=== PATIENT | female | born 1975 | race Caucasian/White ===

== ENCOUNTER → 2020-08-09 15:22 | Outpatient (CLI) | payer OTHER, SELFPAY ==
--- NOTE | ~2020-08-09 | MM_ITS ---
EXAMINATION: MM screening yani BI w royal HISTORY: Screening mammogram TECHNIQUE: Craniocaudal and mediolateral oblique 3-D tomosynthesis images were obtained and synthetic 2-D images were generated. CAD analysis was submitted and interpreted. COMPARISON: No prior mammogram is available for comparison at this institution. BREAST PARENCHYMAL COMPOSITION: There are scattered areas of fibroglandular density. FINDINGS: There is no evidence of suspicious mass, calcification, or architectural distortion to sugg est malignancy in either breast. There has been no suspicious interval change. IMPRESSION: 1. No mammographic evidence of malignancy. 2. Recommend routine screening mammography in one year. BI-RADS Category 1: Negative Reviewed, dictated and finalized at location A.
== END ==
PROVIDERS: Visit Provider Nurse Practitioner Obstetrics & Gynecology
DX: Z12.31 Encounter for screening mammogram for malignant neoplasm of breast (principal)
CPT/HCPCS: 77063; 77067

== ENCOUNTER → 2021-12-04 16:09 | Outpatient (CLI) | payer OTHER, SELFPAY ==
--- NOTE | ~2021-12-04 | MM_ITS ---
EXAMINATION: MM screening yani BI w royal HISTORY: Screening TECHNIQUE: Craniocaudal and mediolateral oblique 3-D tomosynthesis images were obtained and synthetic 2-D images were generated. CAD analysis was submitted and interpreted. COMPARISON: 08/09/2020 BREAST PARENCHYMAL COMPOSITION: There are scattered areas of fibroglandular density. FINDINGS: There is no evidence of suspicious mass, calcification, or architectural distortion to sugg est malignancy in either breast. There has been no suspicious interval change. IMPRESSION: 1. No mammographic evidence of malignancy. 2. Recommend routine screening mammography in one year. BI-RADS Category 1: Negative Reviewed, dictated and finalized at location A.
== END ==
PROVIDERS: PCP Internal Medicine; Visit Provider Internal Medicine
DX: Z12.31 Encounter for screening mammogram for malignant neoplasm of breast (principal)
CPT/HCPCS: 77063; 77067

== ENCOUNTER 2022-01-02 10:15 | Outpatient (CLI) | payer OTHER, SELFPAY ==
--- NOTE | ~2022-01-02 | MR_ITS ---
EXAMINATION: MR lumbar spine wo con DATE: 01/02/2022 10:51 INDICATION: Recurrent right-sided sciatica. Lumbar radiculopathy. TECHNIQUE: Magnetic resonance imaging (MRI) of the lumbar spine was performed without intravenous con trast. Sequences included sagittal T2-weighted FSE, sagittal T2-weighted FS FSE, sagittal T1-weighted FSE, and axial T2-weighted FSE. COMPARISON: None FINDINGS: There is 6 degrees levocurvature of thoracolumbar spine. Vertebral body heights are normal. Intervertebral disc heights are normal. The distal spinal cord signal intensity is normal. The conus medullaris is at T12-L1. There is a 4.8 cm cyst in left ovary, likely a follicular cyst. The followi ng disc levels are specifically discussed: L1-L2: The disc does not extend beyond the endplate margin. There is no facet joint osteoarthritis. T here is no neural foraminal stenosis. There is no central canal stenosis. L2-L3: There is a left foraminal protrusion. There is no facet joint osteoarthritis. There is mild le ft neural foraminal stenosis. There is no central canal stenosis. L3-L4: The disc is mildly bulging. There is mild bilateral facet joint osteoarthritis. There is mild right and moderate left neural foraminal stenosis. There is no central canal stenosis. L4-L5: There is a left central extrusion with mass effect on left L5 nerve root in left lateral reces s. There is mild left facet joint osteoarthritis. There is mild right and moderate left neural forami nal stenosis. There is mild central canal stenosis. There is moderate stenosis of left lateral recess . L5-S1: The disc does not extend beyond the endplate margin. There is mild bilateral facet joint osteo arthritis. There is no neural foraminal stenosis. There is no central canal stenosis. IMPRESSION: 1. Moderate lumbar spondylosis. Reviewed, dictated and finalized at location A.
== END 2022-01-02 10:16 | disposition home or self-care (01) ==
PROVIDERS: PCP Internal Medicine; Visit Provider Physician Assistant
DX: M54.31 Sciatica, right side (principal); M47.816 Spondylosis without myelopathy or radiculopathy, lumbar region
CPT/HCPCS: 72148

== ENCOUNTER 2022-03-31 16:42 | Outpatient (CLI) | payer OTHER, SELFPAY ==
[2022-03-31 19:55] LABS: Strep Group A RT-PCR Negative (Negative)
== END 2022-03-31 16:43 | disposition home or self-care (01) ==
LOC: ANHLAB 16:44
PROVIDERS: PCP Physician Assistant; Visit Provider Physician Assistant
DX: J02.9 Acute pharyngitis, unspecified (principal)
CPT/HCPCS: 87651

== ENCOUNTER → 2023-02-20 08:08 | Outpatient (CLI) | payer OTHER, SELFPAY ==
--- NOTE | ~2023-02-20 | MM_ITS ---
EXAMINATION: MM screening yani BI w royal HISTORY: Screening mammogram TECHNIQUE: Craniocaudal and mediolateral oblique 3-D tomosynthesis images were obtained and synthetic 2-D images were generated. CAD analysis was submitted and interpreted. COMPARISON: 12/04/2021, 08/09/2020 BREAST PARENCHYMAL COMPOSITION:There are scattered areas of fibroglandular density. FINDINGS: No suspicious mass, calcification, or architectural distortion are identified in either jenni ast to suggest malignancy. There has been no suspicious interval change. IMPRESSION: No mammographic evidence of malignancy. Recommend routine screening mammography in one year. BI-RADS Category 1: Negative Reviewed, dictated and finalized at location .
== END ==
PROVIDERS: PCP Internal Medicine; Visit Provider Internal Medicine
DX: Z12.31 Encounter for screening mammogram for malignant neoplasm of breast (principal)
CPT/HCPCS: 77063; 77067

== ENCOUNTER → 2023-07-02 10:06 | Outpatient (CLI) | payer OTHER, SELFPAY ==
--- NOTE | ~2023-07-02 | US_ITS ---
Pelvic ultrasound. Clinical History: Irregular menses Technique: Realtime transabdominal and transvaginal scanning of the pelvis was performed. Color flow Doppler and Doppler spectral analysis were performed. Findings: The uterus is anteverted. The endometrial stripe has a thickness of 9 mm. No focal mass is identified. The right ovary measures 3.9 x 1.9 x 2.9 cm. No significant right ovarian or adnexal mass is seen. The left ovary measures 2.9 x 1.5 x 3.4 cm. No significant left ovarian or adnexal mass is seen. There is no evidence of free fluid in the cul de sac. Impression: No significant abnormality seen. Reviewed, dictated and finalized at location . [employer] Impression: No significant abnormality seen.
== END ==
PROVIDERS: PCP Obstetrics & Gynecology; Visit Provider Obstetrics & Gynecology
DX: N92.6 Irregular menstruation, unspecified (principal)
CPT/HCPCS: 76830; 76856

== ENCOUNTER 2023-10-27 16:34 | Outpatient (CLI) | payer OTHER, SELFPAY ==
[2023-10-27 17:02] LABS: Hematocrit 36.7 % (37.0-47.0); Hemoglobin 11.6 g/dL (12.0-15.0)
== END 2023-10-27 16:35 | disposition home or self-care (01) ==
LOC: ANHLAB 16:35
PROVIDERS: Visit Provider Anesthesiology
DX: N93.9 Abnormal uterine and vaginal bleeding, unspecified (principal)
CPT/HCPCS: 36415; 85014; 85018

== ENCOUNTER 2023-11-03 02:43 | Day surgery (SDC) | payer OTHER, SELFPAY ==
[2023-10-27 10:06] VITALS: BMI 31.2
--- NOTE | 2023-10-27 10:06 | PC.NURSE ---
Report to the Outpatient Waiting Room, entrance under the green pavilion located off [facility], at time _0800_ on date _[id number]_. Planned Procedure Time: _1000_. Time changes happen often and if your time is changed the preop area will call you the afternoon before. - You and your visitor will be asked to self-screen and do not enter if you have any COVID symptoms. - A mask is optional within the hospital at this time. Patients may have clear liquids (water, carbonated beverages, clear teas, apple juice) until 3 hours prior to surgery with a maximum of 20 ounces. - No food from midnight until time of surgery Take the following medications with a SIP of water the morning of surgery: __None DO NOT STOP ANY OF YOUR OTHER PRESCRIPTION MEDICATIONS PRIOR TO SURGERY ?EXCEPT THE FOLLOWING Medications to discontinue per physician Iron tab Date to take last ygov___[id number] Please no make-up, nail guatemalan, hairspray, perfume, deodorant, or body powder the day of surgery. No jewelry (including any body piercings) or valuables the day of surgery, leave them at home. Please take a shower or bath the night before, or the morning of, surgery with an antibacterial soap. Wear comfortable, loose fitting clothing. - Jewelry must be removed prior to entering the operating room. Rings and piercings that are not removed may be cut off. - The hospital will not accept responsibility for valuables. - Please leave all valuables, including medications, at home the day of surgery. If you are going home after surgery, a licensed diesel pile driver operator must drive you home. - NO public transportation without another adult if you receive anesthesia. - We recommend that an adult stay with you for 24 hours following discharge. - We also recommend that you do not drive, make important decision, drink alcoholic beverages, or take any drugs that were not prescribed by your health care provider for at least 24 hours after your discharge time. Follow any additional instructions given to you from your surgeon. If you or anyone in your household have experienced Covid symptoms in the past week, please notify your surgeon or the nurse liaison at the phone number below for possible testing. Telephone instructions given to _Franciscomik__and asked if any additional questions and then verbalized understanding. Patient advised to call surgeon office or pre surgery nurse liaison [phone] if any additional questions.
[2023-11-03] VITALS (7 sets, daily range): BP systolic 93–141; BP diastolic 47–90; PULSE 53–66; RESP 14–16; TEMP 36.2; O2SAT 95–100
[2023-11-03] MEDS: ACETAMINOPHEN 500 MG TABLET 1000 MG PO (08:10)
[2023-11-03] MEDS: LACTATED RINGERS 1,000 ML 30 ML IV CONT ×2 (08:18→10:48)
--- NOTE | 2023-11-03 09:44 | WPDANESEPPF ---
Anes - Initial Pre Proc Eval Procedure: Operation Date: 11/03/23 10:00 Proposed Procedures p Hysteroscopy, Dilation and Curettage with Removal of Any Endometrial Lesions if Necessary - Get Persaud MD Date/Time: 11/03/23 09:44 Surgeon: Get Persaud MD Pre Op Diagnosis: Abnormal Uterine Bleeding Patient Data Age: 48 Gender: F Height: 1.55 m Weight: 85.3 kg Last Vital Signs Temp 36.2 C L 11/03/23 08:24 Pulse 66 11/03/23 08:24 Resp 16 11/03/23 08:24 BP 141/90 H 11/03/23 08:24 Pulse Ox 100 11/03/23 08:24 O2 Del Method Room Air 11/03/23 08:24 Allergies Allergy/AdvReac Type Severity Reaction Status Date / Time No Known Allergies Allergy Verified 11/03/23 08:00 Home Medications Medication Instructions Recorded Confirmed Type levothyroxine 112 mcg tablet 112 mcg PO DAILY #90 tabs 11/09/22 11/03/23 Rx cyclobenzaprine 10 mg tablet See Rx Instructions .Route 09/08/23 11/03/23 Rx .COMPLEX #30 tabs ferrous sulfate 324 mg (65 mg 324 mg PO DAILY 10/27/23 11/03/23 History iron) tablet,delayed release loratadine 10 mg tablet (Claritin) 10 mg PO DAILY 10/27/23 11/03/23 History Patient hx anesthesia problems: none Family hx anesthesia problems: none Results Review: All pre-operative results and documents have been reviewed as part of the pre-operative evaluation. [facility] Past Medical History Medical History Back Pain delivery delivered Headache Thyroid disease Surgical History Surgical History H/O tubal ligation History of 3 sections Family History Family History Father Acute myocardial infarction, Onset Age: 44 Mother Acute myocardial infarction, Onset Age: 68 Other Asthma Diabetes mellitus Hypertension Social History Social History Smoking status: Never smoker Second hand tobacco smoke exposure: No Alcohol intake: current Substance use: never Substance use type: does not use Lack of Transportation: No Lack of Food: Never True Current Housing: I Have Housing Concerned About Future Housing: No Difficulty Paying Gas/Electric Bills: No Difficulty Paying for Meds: No Currently Unemployed: No Education: High School Diploma/GED Difficulty w/ Childcare or Family Care: No Living arrangements: with family Spiritual care concerns: No Anes - Eval Final PreProcedure Day of Procedure 11/03/23 09:44 Patient weight: obese Heart: regular rate and rhythm Lungs: clear to auscultation Airway: Mallampati scale class II Neurological: alert and oriented Last oral intake: >/= 8 hours ASA classification: II Emergent: no Anesthetic plan: proceed Anesthesia type and monitoring: general GIVS and standard monitoring Results Review: All pre-operative results and documents have been reviewed as part of the pre-operative evaluation. Informed Consent: The patient's anesthetic plan and its attendant risks and benefits were discussed with the patient/family/POA. Questions were solicited and answers provided to the satisfaction of the patient/family/POA.
--- NOTE | 2023-11-03 10:06 | PM.IMHP ---
H&P: HPI History of Present Illness Date/Time: 11/03/23 10:06 Chief Complaint: Abnormal bleeding Narrative: Patient with long history of abnormal uterine bleeding. Pelvic ultrasound normal. She has been recommended for endometrial sampling and was unable to perform endometrial biopsy in office. She was recommended for dilation and curettage and hysteroscopy. Review of Systems Review of Systems: All systems reviewed & are unremarkable except as noted in HPI and below Cardiovascular: Cardiovascular: Reports no additional cardiovascular complaints, Denies chest pain and Denies dyspnea Respiratory: Respiratory: Reports no additional respiratory complaints and Denies dyspnea Gastrointestinal: Gastrointestinal: Reports abdominal pain, Denies change in bowel habits, Denies diarrhea, Denies nausea and Denies vomiting Genitourinary: Genitourinary: Reports pelvic pain Musculoskeletal: Musculoskeletal: Reports back pain Integumentary/Breasts: Skin/Breast: Reports system reviewed and no additional complaints, except as docu Neurologic: Reports system reviewed and no additional complaints, except as documented PMFSH Past Medical History Medical History Back Pain delivery delivered Headache Thyroid disease Surgical History Surgical History H/O tubal ligation History of 3 sections Family History Family History Father Acute myocardial infarction, Onset Age: 44 Mother Acute myocardial infarction, Onset Age: 68 Other Asthma Diabetes mellitus Hypertension Social History Social History Smoking status: Never smoker Second hand tobacco smoke exposure: No Alcohol intake: current Substance use: never Substance use type: does not use Lack of Transportation: No Lack of Food: Never True Current Housing: I Have Housing Concerned About Future Housing: No Difficulty Paying Gas/Electric Bills: No Difficulty Paying for Meds: No Currently Unemployed: No Education: High School Diploma/GED Difficulty w/ Childcare or Family Care: No Living arrangements: with family Spiritual care concerns: No Meds Home Medications and Allergies Home Medications Medication Instructions Recorded Confirmed Type levothyroxine 112 mcg tablet 112 mcg PO DAILY #90 tabs 11/09/22 11/03/23 Rx cyclobenzaprine 10 mg tablet See Rx Instructions .Route 09/08/23 11/03/23 Rx .COMPLEX #30 tabs ferrous sulfate 324 mg (65 mg 324 mg PO DAILY 10/27/23 11/03/23 History iron) tablet,delayed release loratadine 10 mg tablet (Claritin) 10 mg PO DAILY 10/27/23 11/03/23 History Allergies Allergy/AdvReac Type Severity Reaction Status Date / Time No Known Allergies Allergy Verified 11/03/23 08:00 Vital Signs Vital Signs - 24 hr 11/03/23 08:24 Temperature 97.2 F L Pulse Rate 66 Respiratory Rate 16 Blood Pressure 141/90 H Pulse Oximetry 100 Oxygen Delivery Room Air Exam Const: Orientation/consciousness: oriented to person and oriented to place HENMT: Head: normal to inspection Eyes: General: appearance normal, both eyes and all related structures Resp: Effort & Inspection: normal respiratory effort Auscultation: clear to auscultation bilaterally Cardio: Rate: regular rate Rhythm: regular rhythm GI: Inspection: normal to inspection GI Palp: No Rebound tenderness present Neuro: General: oriented to person and oriented to place Cognition (Neuro): normal cognition Extrem: General: normal to inspection Psych: Appearance: grossly normal and well kempt Assessment and Plan Assessment and plan (1) Irregular menstrual bleeding: Code(s): N92.6 - Irregular menstruation, unspecified Status: Acute Assessment and Plan
--- NOTE | 2023-11-03 10:08 | WPDHPUPDATE1 ---
History and Physical Update Update Date/Time: 11/03/23 10:08 History and Physical has been reviewed, including an updated exam of the patient. There are NO changes in the patient's condition. Risks, benefits, and alternatives have been discussed and questions answered. Patient agrees to proceed with procedure.
[2023-11-03] MEDS: ceFAZolin 2 GM/D5W 50 ML 2 GM/50 ML BAG IVPB (10:14)
[2023-11-03] MEDS: LIDOCAINE HCL 1% LOCAL INJ 20 ML VIAL 10 ML INFILTRATE (10:26)
[2023-11-03] MEDS: KETOROLAC 30 MG/ML VIAL (*BKC) IV PUSH (10:38)
--- NOTE | 2023-11-03 10:56 | W.PM.PROC2 ---
Procedure Note - Detailed Date of Procedure 11/03/23 Pre-op Diagnosis Abnormal Uterine Bleeding Post-op Diagnosis Same Procedure Performed Dilation and curettage and hysteroscopy. Surgeon Get Persaud MD Anesthesia MAC and Local Indications Dysfunctional uterine bleeding Findings Cervix very posterior, stenotic, uterine cavity without abnormality, minimal tissue with curettage Description of Procedure After informed consent was obtained she was taken to operating room and adequate IV sedation was administered she was placed in high lithotomy position and prepped and draped in sterile fashion attention was turned to the vagina. Cervix was noted to be very posterior. Cervix was visualized single-tooth tenaculum was placed on the anterior lip of the cervix 10 cc of 1% lidocaine was injected at the cervical vaginal interface add to 5 8 in 10 position. The cervical os was dilated to a size 7 Kaiser dilator. The hysteroscope was inserted the cavity appeared grossly normal no abnormalities noted. A curettage was then performed with minimal tissue obtained. the single-tooth tenaculum was removed hemostasis was noted. The fluid discrepancy was 250 but there was 250 in the bag therefore discrepancy was minimal. Patient tolerated procedure well and was taken to recovery in stable condition. Estimated Blood Loss 5 Drains No Packing No Pathology Yes ( Minimal curettage endometrial) Complications No immediate complications Condition Stable Disposition Same day [facility] Billing Surgery - Charge Forward: Surgery Billing
[2023-11-03] MEDS: oxyCODONE HCL (*CRX) 5 MG TAB IR PO (11:38)
== END 2023-11-03 12:15 | disposition home or self-care (01) ==
PROVIDERS: Visit Provider Obstetrics & Gynecology
PROC: 0U5B8ZZ Destruction of Endometrium, Via Natural or Artificial Opening Endoscopic (ICD-10-PCS; CPT 58563; principal; 2023-11-03 10:00)
DX: N92.6 Irregular menstruation, unspecified (principal); E07.9 Disorder of thyroid, unspecified; E66.9 Obesity, unspecified; Z68.35 Body mass index [BMI] 35.0-35.9, adult
CPT/HCPCS: 58558; 88305; A9270; J0690; J1885; J2250; J2405; J2704; J3010; J7120

== ENCOUNTER 2024-01-21 03:07 | Day surgery (SDC) | payer OTHER, SELFPAY ==
[2024-01-12 09:48] VITALS: BMI 31.1
--- NOTE | 2024-01-12 10:01 | PC.NURSE ---
Report to the Outpatient Waiting Room, entrance under the green pavilion located off [facility], at time _729 on date _01/21/24 . Planned Procedure Time: .? Time changes happen often and if your time is changed the preop area will call you the afternoon before. - You and your visitor will be asked to self-screen and do not enter if you have any COVID symptoms. Please call surgeon if you need to reschedule. - A mask is optional within the hospital at this time. Patients may have clear liquids (water, carbonated beverages, clear teas, apple juice) until 3 hours prior to surgery with a maximum of 20 ounces. - No food from midnight until time of surgery and no smoking - Infants may have breast milk until 4 hours before surgery, formula 6 hours prior to surgery. - Children will be allowed to drink immediately following surgery.? If applicable, please bring a bottle or sippy cup to assist with drinking. Juice, water, soda, and popsicles are readily available.? For infants on formula, please bring formula the day of surgery.? Pacifiers are allowed. Take only the following medications with a SIP of water on the morning of surgery: __Inhaler, Levothyroxine DO NOT STOP ANY OF YOUR OTHER PRESCRIPTION MEDICATIONS PRIOR TO SURGERY EXCEPT THE FOLLOWING Medications to discontinue per physician ___N/A Date to take last dose_N/A Please no make-up, nail uzbek, hairspray, perfume, deodorant, or body powder the day of surgery.? No jewelry (including any body piercings) or valuables the day of surgery, leave them at home.? Please take a shower or bath the night before, or the morning of, surgery with an antibacterial soap.? Wear comfortable, loose fitting clothing.? Children are encouraged to wear pajamas. - Jewelry must be removed prior to entering the operating room.? Rings and piercings that are not removed may be cut off. - The hospital will not accept responsibility for valuables.? - Please leave all valuables, including medications, at home the day of surgery. If you are going home after surgery, a licensed cdl dedicated truck driver must drive you home.? - NO public transportation without another adult if you receive anesthesia. - We recommend that an adult stay with you for 24 hours following discharge. - We also recommend that you do not drive, make important decision, drink alcoholic beverages, or take any drugs that were not prescribed by your health care provider for at least 24 hours after your discharge time. For Pediatric surgeries, we recommend two adults accompany the child home. Follow any additional instructions given to you from your surgeon. Telephone instructions given to Treva and asked if any additional questions and then verbalized understanding. Patient advised to call surgeon office or pre surgery nurse liaison [phone] if any additional questions.
--- NOTE | 2024-01-21 07:41 | WPDHPUPDATE1 ---
History and Physical Update Update Date/Time: 01/21/24 07:41 History and Physical has been reviewed, including an updated exam of the patient. There are NO changes in the patient's condition. Risks, benefits, and alternatives have been discussed and questions answered. Patient agrees to proceed with procedure.
[2024-01-21 08:50] VITALS: BP 132/80; PULSE 65; RESP 14; TEMP 36.4; O2SAT 98
[2024-01-21] MEDS: ACETAMINOPHEN 500 MG TABLET 1000 MG PO (08:50)
[2024-01-21] MEDS: LACTATED RINGERS 1,000 ML 30 ML IV CONT (08:50)
--- NOTE | 2024-01-21 09:07 | WPDANESEPPF ---
Anes - Initial Pre Proc Eval Procedure: Operation Date: 01/21/24 09:30 Proposed Procedures p Hysteroscopy, Dilation and Curettage with Betty Endometrial Ablation - Get Persaud MD Date/Time: 01/21/24 09:07 Surgeon: Get Persaud MD Pre Op Diagnosis: menorrhagia Patient Data Age: 48 Gender: F Height: 1.55 m Weight: 74.84 kg Last Vital Signs O2 Del Method Room Air 01/12/24 10:04 Allergies Allergy/AdvReac Type Severity Reaction Status Date / Time No Known Allergies Allergy Verified 01/13/24 09:53 Home Medications Medication Instructions Recorded Confirmed Type cyclobenzaprine 10 mg tablet See Rx Instructions .Route 09/08/23 01/12/24 Rx .COMPLEX #30 tabs loratadine 10 mg tablet (Claritin) 10 mg PO DAILY 10/27/23 01/12/24 History budesonide-formoterol HFA 160 2 puff inhalation Q12H #10.2 grams 11/29/23 01/12/24 Rx mcg-4.5 mcg/actuation aerosol inhaler (Symbicort) levothyroxine 112 mcg tablet 112 mcg PO HS 01/12/24 01/12/24 History Patient hx anesthesia problems: none Family hx anesthesia problems: none Results Review: All pre-operative results and documents have been reviewed as part of the pre-operative evaluation. [facility] Past Medical History Medical History Back Pain delivery delivered Headache Thyroid disease Surgical History Surgical History H/O tubal ligation History of 3 sections History of hysteroscopy Family History Family History Father Acute myocardial infarction, Onset Age: 44 Mother Acute myocardial infarction, Onset Age: 68 Other Asthma Diabetes mellitus Hypertension Social History Social History Smoking status: Never smoker Second hand tobacco smoke exposure: No Alcohol intake: current Alcohol use details: twice a month Substance use: never Substance use type: does not use Lack of Transportation: No Lack of Food: Never True Current Housing: I Have Housing Concerned About Future Housing: No Difficulty Paying Gas/Electric Bills: No Difficulty Paying for Meds: No Currently Unemployed: No Education: High School Diploma/GED Difficulty w/ Childcare or Family Care: No Living arrangements: with family Spiritual care concerns: No Anes - Eval Final PreProcedure Day of Procedure 01/21/24 09:07 Patient weight: overweight Heart: regular rate and rhythm Lungs: clear to auscultation Airway: Mallampati scale class II Neurological: alert and oriented Last oral intake: >/= 8 hours ASA classification: II Emergent: no Anesthetic plan: proceed Anesthesia type and monitoring: general GIVS and standard monitoring Results Review: All pre-operative results and documents have been reviewed as part of the pre-operative evaluation. Informed Consent: The patient's anesthetic plan and its attendant risks and benefits were discussed with the patient/family/POA. Questions were solicited and answers provided to the satisfaction of the patient/family/POA.
[2024-01-21] MEDS: ceFAZolin 2 GM/D5W 50 ML 2 GM/50 ML BAG IVPB (09:11)
[2024-01-21 09:22] LABS: BEDSIDEPREGUCG Negative (Negative)
[2024-01-21] MEDS: LIDOCAINE HCL 1% LOCAL INJ 20 ML VIAL 10 ML INFILTRATE (09:28)
[2024-01-21 09:49] VITALS: BP 102/63; PULSE 53; RESP 12; O2SAT 96
--- NOTE | 2024-01-21 09:59 | W.PM.PROC2 ---
Procedure Note - Detailed Date of Procedure 01/21/24 Pre-op Diagnosis menorrhagia Post-op Diagnosis Same Procedure Performed hysteroscopy and attempted endometrial ablation Surgeon Get Persaud MD Anesthesia MAC and Local Indications Menorrhagia Findings Uterus sound to 10 cm cervix was 4 cm uterine length 6 cm the cavity was normal appearing no lesions. It did appear narrow. After the insertion of the Betty instrument was performed and it would not completely dislodged then the hysteroscope was performed again it appeared to be a small possible perforated area at the fundus this did not go full through the myometrium there was no bleeding. Description of Procedure After informed consent was obtained patient was taken to the operating room and adequate IV sedation was administered. Bladder was drained of urine. Attention was turned to the vagina. Speculum was inserted. Single-tooth tenaculum placed on the anterior lip of the cervix. 10 cc of 1% lidocaine was injected at the 2, 8 and 10 position. The uterus was sounded to 10 cm. Cervical length 4 cm. The cervix was dilated to an 8 Kaiser dilator. The hysteroscope was inserted into the cavity. The findings were a narrow appearing normal uterine cavity. The hysteroscope was removed. The Betty ablation instrument was inserted into the cavity. Attempted x 2 to engage arms but marker wound not go in green. Hysteroscope was performed and there appeared to be indention into the myometrium, not full thickness, no bleeding. Unable to proceed with ablation. The hysteroscope was removed the single-tooth tenaculum was removed hemostasis was noted at the tenaculum site. Sponge count correct. The fluid discrepancy was 270 but this done before all fluid drained from bag, it appeared to be 100cc or less in bag before suction removed. The patient taken to recovery in stable condition. Estimated Blood Loss 5 Drains No Packing No Pathology None sent Complications No immediate complications Condition Stable Disposition Same day [facility] Billing Surgery - Charge Forward: Surgery Billing
[2024-01-21 10:15] VITALS: BP 103/73; PULSE 55; RESP 20
[2024-01-21 10:45] VITALS: BP 120/66; PULSE 70; RESP 20
[2024-01-21 11:05] VITALS: BP 118/62; PULSE 60; RESP 20
== END 2024-01-21 11:05 | disposition home or self-care (01) ==
PROVIDERS: PCP Internal Medicine; Visit Provider Obstetrics & Gynecology
PROC: 0U5B8ZZ Destruction of Endometrium, Via Natural or Artificial Opening Endoscopic (ICD-10-PCS; CPT 58563; principal; 2024-01-21 09:30)
DX: N92.0 Excessive and frequent menstruation with regular cycle (principal); E07.9 Disorder of thyroid, unspecified; Z79.51 Long term (current) use of inhaled steroids; Z98.890 Other specified postprocedural states; Z98.51 Tubal ligation status; Z82.49 Family history of ischemic heart disease and other diseases of the circulatory system; Z53.8 Procedure and treatment not carried out for other reasons
CPT/HCPCS: 58563; A9270; J0690; J1100; J2250; J2405; J2704; J3010; J7120

== ENCOUNTER 2024-06-09 11:23 | Outpatient (CLI) | payer OTHER, SELFPAY ==
--- NOTE | ~2024-06-09 | MM_ITS ---
EXAMINATION: MM screening [facility] BI w royal HISTORY: Screening mammogram TECHNIQUE: Craniocaudal and mediolateral oblique 3-D tomosynthesis images were obtained and synthetic 2-D images were generated. CAD analysis was submitted and interpreted. COMPARISON: 02/20/2023, 12/04/2021, 08/09/2020 BREAST PARENCHYMAL COMPOSITION:Not Dense. There are scattered areas of fibroglandular density. FINDINGS: No suspicious mass, calcification, or architectural distortion are identified in either jenni ast to suggest malignancy. There has been no suspicious interval change. IMPRESSION: No mammographic evidence of malignancy. Recommend routine screening mammography in one year. BI-RADS Category 1: Negative Reviewed, dictated and finalized at location . GER MBA
== END 2024-06-09 11:24 | disposition home or self-care (01) ==
LOC: MICIMG 11:24
PROVIDERS: PCP Internal Medicine; Visit Provider Obstetrics & Gynecology
DX: Z12.31 Encounter for screening mammogram for malignant neoplasm of breast (principal)
CPT/HCPCS: 77063; 77067

== ENCOUNTER 2025-03-28 01:07 | Day surgery (SDC) | payer OTHER, SELFPAY ==
[2025-03-13 09:39] VITALS: BMI 33.3
--- OUTSIDE RECORDS SUMMARY | 2025-03-28 01:09 | XMS_ITS | Clinical Summary ---
Author Organization [facility] [employer] Address [address] [place] [address] Phone Care Team Providers Care Radiology Asst Name Role Phone Mariana Calles MD Unavailable Yovani Albrecht Primary Care Provider Allergies No known active allergies Medications montelukast (SINGULAIR) 10 mg tablet Take 1 tablet (10 mg total) by mouth nightly 90 tablet 3 09/06/19 19 Active levothyroxine (SYNTHROID, LEVOTHROID) 112 mcg tabletIndicat ions:Hypothyr oidism, adult Take 1 tablet (112 mcg total) by mouth daily 90 tablet 12/03/19 19 Active medroxyPROGES TERone 150 mg/mL injection medroxyPROGESTERone Acetate 150 MG/ML Intramuscular Suspension QTY: 1 not specified Days: 0 Refills: 0 Written: 06/01/12 Patient Instructions: RIGHT GLUT, PT TOLERATED WELL..MS 06/01/19 13 Active frovatriptan (FROVA) 2.5 mg tablet TAKE 1 TAB AT ONSET OF HEADACHE IF NO RELIEF, MAY REPEAT 1 TAB AFTER AT LEAST 2 HOURS 01/29/20 22 Active Active Problems Problem Noted Date Diagnosed Date Lumbar radiculopathy 05/05/2022 Obesity (BMI 30-39.9) 04/29/2017 Hypothyroidism, adult 09/27/2012 Overview (08/06/2016): Hypothyroid Resolved Problems Problem Noted Date Diagnosed Date Resolved Date Chronic rhinitis 03/24/2017 09/05/2018 Chronic migraine 03/24/2017 09/05/2018 Benign hypertension 06/18/2014 03/24/20 17 Overview (08/08/2016): Hypertension, benign Wheezing 06/18/2014 09/05/2018 Overview (08/08/2016): Wheezing Immunizations Immunization Administration Dates Next Due Influenza, Quadrivalent, Spl it, Preservative Free, Intramuscular 02/11/2018 Influenza, Split 05/18/2012 Influenza, Trivalent, Adjuvanted, Intramuscular 02/11/2018 Influenza, Trivalent, IM (MDV) 03/04/2016 MMR 08/02/2015 Tdap 08/02/2015,08/27/2005 Surgical History Surgery Date Site/Laterality Comments SECTION X 3 OTHER SURGICAL HISTORY CONTRACEPTIVE: ESSURE ESSURE TUBAL LIGATION 05/03/2011 - 05/02/2012 Dr. Drew Medical History Medical History Date Comments Hx Other Medical CONTRACEPTIVE Hypothyroid Seasonal rhinitis Family History Medical History Relation Name Comments Asthma Father Asthma; Coronary artery disease Father Theresa nary artery disease, premature; Heart disease Father Hypertension Father Hypertension; Diabetes Mother Diabetes type II Mother Diabetes -T ype 2; Heart attack Mother Heart disease Mother Hypertension Mother Hypertension; Prostate cancer Mother's Brother 2 Cancer -prostate; Stroke Paternal Grandmother Relation Name Status Comments Father Mother Mother's Brother 1 Alive Mother's Brother 2 Paternal Grandmother Social History Tobacco Use Types Packs/Day Years Used Date Smoking Tobacco: Former Cigarettes Q uit: 1998 Smokeless Tobacco: Former Alcohol Use Standard Drinks/Week Comments Yes 0 (1 standard drink = 0.6 oz pur e alcohol) occassional Comments No Sex and Gender Information Value Date Recorded Sex Assigned at Not on file Legal Sex Female 4:52 PM LEHR TENDER Gender Identity Not on file Sexual Orientation Not on file 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 Not on file Not on file Not on fi le Obstetrics History Para Term AB IAB SAB Ectopic Multiple Livin g Live Births 3 3 3 0 0 3 Date Outcome GA Total Labor Labor/2nd/3rd Weight Sex Type Anes PTL Sheryl A1 A5 Name Clin Term Term Term Last Filed Vital Signs Vital Sign Reading Time Taken Comments Blood Pressure 140/83 05/05/2022 1:41 PM LEHR TENDER Pulse 65 05/05/2022 1:41 PM LEHR TENDER Temperature 36.4 C (97.5 F) 05/05/2022 1:41 PM LEHR TENDER Respiratory Rate 18 05/05/2022 1:41 PM LEHR TENDER Oxygen Saturation 98% 05/05/2022 1:41 PM LEHR TENDER Inhaled Oxygen Concentration - - Weight 77.1 kg (170 lb) 05/05/2022 1:41 PM LEHR TENDER Height 154.9 cm (5' 1) 05/05/2022 1:41 PM LEHR TENDER Body Mass Index 32.12 05/05/2022 1:41 PM LEHR TENDER Plan of Treatment Health Maintenance Due Date Last Done Comments Colon Cancer Screening-Colonoscopy 1975 Depression Screening 1975 Hepatitis C Screening 1975 Hepatitis B Screening 07/09/1993 Cervical Cancer Screening 04/29/20182016, 09/20/2012, 09/20/2012 Regular Well Visit/Exam 18-64 09/06/2019 09/05/2018, 04/29/2017, 03/24/2017 Breast Cancer Screening-Mammogram 11/29/2019 11/28/2018, 02/26/2017 Covid-19 Vaccine (3 - Moderna risk series) 11/30/2020 11/02/2020, 09/14/2020 Influenza Vaccine (#1) 2025 , 02/25/2020, 03/10/2019, Additional history exists DTaP/Tdap/Td Vaccine (3 - Td or Tdap) 08/01/2025 08/02/2015, 08/27/2005 Pneumococcal vaccine <65 Aged Out 01/17/2014 No longer eligible based on patient's age to complete this topic Goals Goal Patient Goal Type Associated Problems Recent Progress Patient-Stated? Author CCM Chronic Pain Care Plan Chronic Care Management Mary Beltran, RN Note: Problem: Chronic Pain Goals: 1. Minimize further functional decline 2. Maximize quality of life 3. Control pain Strategies: - Activity/exercise program recommendation - Conservative stepwise pain medicine strategy with multi-disciplinary approach - Recommend healthy lifestyle strategies and compensatory methods as needed Procedures Procedure Name Priority Date/Time Associated Diagnosis Comments SCREENING MAMMOGRAM 2D BILATERAL Schedule Routine, Read Routine (OP Routine) 11/28/2018 11:37 AM CDT Breast cancer screening IMAGING PAP AND HPV MRNA E6/E7 Routine 04/29/2017 1:43 PM LEHR TENDER Routine cervical smear from Last 3 Months or Most Recently Relevant to Health Maintenance Results * Screening Mammogram 2D Bilateral (11/28/2018 11:37 AM CDT) Anatomical Region Laterality Modality Breast Bilateral Mammography Narrative 11/28/2018 2:44 PM CDT BILATERAL DIGITAL MAMMOGRAPHY The present examination has been compared to prior imaging studies dated 02/26/2017 and 02/25/2016 Mammography Findings CAD (computer-aided detection) software was utilized. The breasts are heterogeneously dense. This may lower the sensitivity of mammography. No masses, significant calcifications or other abnormalities are seen. Impression There is no mammographic evidence of malignancy. Screening mammogram in 1 year is recommended. BI-RADS Category 1: Negative PATIENT LETTER SENT us Jess Mccoy MD IMG MAMMO PROCEDURES Final Result * Imaging Pap and HPV mRNA E6/E7 (04/29/2017 1:43 PM LEHR TENDER) Report status CANCELED [facility] Comment:Result canceled by t he ancillary CLINICAL INFORMATION: [facility] Comment:Information not prov ided LMP 03/29/17 [facility] Previous Pap NONE GIVEN [facility] Prev. Bx NONE GIVEN [facility] SOURCE: [facility] Comment:Cervix, Endocervix Pap, specimen adequacy [facility] Comment: Satisfactory for evaluation. Endocervical/transformation zone component absent. Pap, general categorization [facility]CELED [facility] Comment:Result canceled by t he ancillary HPV interp [facility] Comment:Negative for intraep ithelial lesion or malignancy. Infection: CANCELED [facility] Comment:Result canceled by t he ancillary COMMENTS [facility] Comment: This Pap test has been evaluated with computer assisted technology. Curriculum Counselor [facility] Comment: MMW, CT(ASCP) CT screening location: [place] [address] Administration MYRIAM Choe [address] Review field service analyst [facility] Comment: AMW, CT(ASCP) CT screening location: [place] [address] Administration MY[place]AM Choe [address] Pathologist CANCELED [facility] Comment:Result canceled by t he ancillary Human papillomavirus RNA, High Risk E6/E7 Not Detected Not Detected [facility] Comment: This test was performed using the APTIMA HPV Assay ([employer] This assay detects E6/E7 viral messenger RNA (mRNA) from 14 high-risk HPV types (16,18,31,33,35,39,45,51,52,56,58,59,66,68). Endocervical 04/29/2017 1:43 PM LEHR TENDER 04/30/2017 5:29 AM LEHR TENDER Narrative Resulting Agency Comment Performing Organization Information: Site ID: Name: [facility] Address: [facility] [place] [address] Director: Nenita Bonilla MD Mariana Calles MD LAB PATHOLOGY ORDERAB LES Final Result [place], [place] from Last 3 Months or Most Recently Relevant to Health Maintenance Insurance AET[employer] SIG [id number] [facility] CMR Advance Directives For more information, please contact: [phone] Documents on File Type Date Recorded Patient Securities Counselor Expl anation ADVANCE DIRECTIVE 05/07/2014 POWER OF A [employer] Care Teams Radiology Asst Relationship Specialty Start Date End Date Yovani Albrecht PA [address] [facility] [address] [place] [address] PCP - General Physician Wet Mixer 06/01/22 Mariana Calles MD [address] [place] [address] Registered Nurse Bone Marrow Transplant Obstetrics and Gynecology 09/05/18
--- OUTSIDE RECORDS SUMMARY | 2025-03-28 01:09 | XMS_ITS | Clinical Summary ---
Author Organization [facility] Address [address] [place] [address] Care Team Providers Care Law Office Assistant Name Role Phone Melanie Mccoy MD Primary Care Provider [phone] Source Comments [facility],non-owned Affiliates and Associated Physician Practices is amultiple site organization consisting of ambulatory clinics and hospital sitesin [place], [place], [place] and [place]. This disclosure is being madepursuant to the Care Everywhere program and may not contain all information available regarding this patient. Last updated 18.[facility] Allergies No known active allergies Medications * Be aware that medications may not be up to date on this document. Alwaysverify current medications with the patient. levothyroxine (SYNTHROID) 112 MCG tablet TAKE 1 TABLET BY MOUTH EVERY DAY 01/25/2018 Active benzonatate (TESSALON) 200 MG capsule Take 1 capsule by mouth 3 times daily as needed for Cough 30 capsule 06/29/2019 Active Social History Tobacco Use Types Packs/Day Years Used Date Smoking Tobacco: Former Smokeless Tobacco: Never Comments No Sex and Gender Information Value Date Recorded Sex Assigned at Not on file Legal Sex Female 10:42 AM CDT Gender Identity Not on file Sexual Orientation Not on file Last Filed Vital Signs Vital Sign Reading Time Taken Comments Blood Pressure 122/70 06/29/2019 5:44 PM VETERINARY BACTERIOLOGIST Pulse 66 06/29/2019 5:44 PM VETERINARY BACTERIOLOGIST Temperature 36.6 C (97.9 F) 06/29/2019 5:44 PM VETERINARY BACTERIOLOGIST Respiratory Rate 16 06/29/2019 5:44 PM VETERINARY BACTERIOLOGIST Oxygen Saturation 99% 06/29/2019 5:44 PM VETERINARY BACTERIOLOGIST Inhaled Oxygen Concentration - - Weight 68 kg (150 lb) 06/29/2019 5:44 PM VETERINARY BACTERIOLOGIST Height 154.9 cm (5' 1) 06/29/2019 5:44 PM VETERINARY BACTERIOLOGIST Body Mass Index 28.34 06/29/2019 5:44 PM VETERINARY BACTERIOLOGIST Plan of Treatment Health Maintenance Due Date Last Done Comments COLOGUARD (AGES 45-75) - COL ON CA SCREENING 1975 COLON MONITORING 1975 COLONOSCOPY - COLON CA SCREENING 1975 CT COLONOGRAPHY - COLON CA SCREENING 1975 Colorectal Cancer Screening 1975 FIT - COLON CA SCREENING 1975 FLEX SIG - COLON CA SCREENING 1975 LIPID TESTING 1975 MAMMOGRAM 1975 HIV SCREENING 07/09/1990 HEPATITIS C SCREENING 07/05/1993 DTAP/TDAP/TD VACCINES (1 - Tdap) 07/09/1994 HEPATITIS B VACCINE (1 of 3 - 19+ 3-dose series) 07/09/1994 Cervical Cancer Screening 07/09/1996 PAP SMEAR 07/09/1996 PAP with HPV 07/09/2005 SCREENING FOR DIABETES 06/29/2019 DEPRESSION SCREENING 05/03/2024 COVID-19 VACCINE (1 - 2024-2 6 season) 2025 INFLUENZA VACCINE (#1) 2025 8, 03/04/2016 ZOSTER VACCINE (1 of 2) 07/09/2025 HIB VACCINE Aged Out No longer eligi ble based on patient's age to complete this topic HPV VACCINE Aged Out No longer eligi ble based on patient's age to complete this topic MENINGOCOCCAL (Group B) VACCINE SHARED DECISION-MAKING Aged Out No longer eligible based on patient's age to complete this topic MENINGOCOCCAL GROUPS A/C/Y/W VACCINE Aged Out No longer eligible b ased on patient's age to complete this topic Insurance [facility] AETNA * Guarantor: LAURIE WINCHESTER Account Type Relation to Patient Date of Phone Billing Address Personal/Family [address] [place] [phone] [facility] SELF PAY NO INSURANCE Member Subscriber Plan / Payer (Ef fective for All Dates) Name:Laurie Winchester Member ID:Not on file Relation to Subscriber:Not on file Name:LAURIE WINCHESTER Subscriber ID:Not on file Address: [address] [place] [phone] Payer ID:Not on file Group ID:Not on file Type:Self Pay Address: [place], [place] * Guarantor: LAURIE WINCHESTER Account Type Relation to Patient Date of Phone Billing Address Personal/Family [phone] SELF PAY NO INSURANCE Member Subscriber Plan / Payer (Ef fective for All Dates) Name:Laurie Winchester Member ID:Not on file Relation to Subscriber:Not on file Name:LAURIE WINCHESTER Subscriber ID:Not on file Address: [address] [place] [address] Payer ID:Not on file Group ID:Not on file Type:Self Pay Address: [place], [place] * Guarantor: LAURIE WINCHESTER Account Type Relation to Patient Date of Phone Billing Address Personal/Family [phone] SELF PAY NO INSURANCE Member Subscriber Plan / Payer (Ef fective for All Dates) Name:Laurie Winchester Member ID:Not on file Relation to Subscriber:Not on file Name:LAURIE WINCHSETER Subscriber ID:Not on file Address: [id number] Payer ID:Not on file Group ID:Not on file Type:Self Pay Address: [place], [place] Care Teams Law Office Assistant Relationship Specialty Start Date End Date Melanie Mccoy MD [address] [place] [address] PCP - General Internal Medicine 12/18/16
[2025-03-28 07:21] VITALS: BP 127/94; PULSE 73; RESP 18; TEMP 36.9; O2SAT 100; BMI 33.3
[2025-03-28] MEDS: LACTATED RINGERS 1,000 ML 150 ML IV CONT (07:30)
--- NOTE | 2025-03-28 07:47 | P.PNAN_ITS ---
Anes - Initial Pre Proc Eval Procedure: Operation Date: 03/28/25 08:30 Proposed Procedures p Screening Colonoscopy - Clive Tariq MD Date/Time: 03/28/25 07:47 Surgeon: Clive Tariq MD Pre Op Diagnosis: Encounter for screening for malignant neoplasm of Patient Data Age: 49 Gender: F Height: 1.55 m Weight: 80 kg Last Vital Signs Temp 98.4 F 03/28/25 07:21 Pulse 73 03/28/25 07:21 Resp 18 03/28/25 07:21 BP 127/94 H 03/28/25 07:21 Pulse Ox 100 03/28/25 07:21 O2 Del Method Room Air 03/28/25 07:21 Allergies Allergy/AdvReac Type Severity Reaction Status Date / Time No Known Allergies Allergy Verified 03/28/25 07:20 Home Medications ?Medication ?Instructions ?Recorded ?Confirmed ?Type cyclobenzaprine 10 mg tablet See Rx Instructions .Marla russell 09/08/23 03/28/25 Rx .COMPLEX #30 tabs loratadine 10 mg tablet (Claritin) 10 mg PO DAILY 10/0203/28/25 History frovatriptan 2.5 mg tablet See Rx Instructions PO .COM PLEX #8 05/31/24 03/28/25 Rx tabs levothyroxine 112 mcg tablet See Rx Instructions .Marla russell 12/07/24 03/28/25 Rx .COMPLEX #90 tabs budesonide-formoterol HFA 160 See Rx Instructions .Rou te 01/03/25 03/28/25 Rx mcg-4.5 mcg/actuation aerosol .COMPLEX #10.2 ea inhaler valacyclovir 1 gram tablet 2,000 mg (2 x 1 gram) PO Q1 2H #12 01/23/25 03/13/25 Rx tabs bupropion HCl 150 mg 24 hr tablet, 150 mg PO QAM #90 t abs 02/14/25 03/28/25 Rx extended release (Wellbutrin XL) Patient hx anesthesia problems: none Family hx anesthesia problems: none Results Review: All pre-operative results and documents have been reviewed as part of the pre- operative evaluation. [facility], [facility] Past Medical History Medical History Headache Back Pain delivery delivered Thyroid disease Surgical History Surgical History History of hysteroscopy History of 3 sections H/O tubal ligation Family History Family History Father Acute myocardial infarction, Onset Age: 44 Mother Acute myocardial infarction, Onset Age: 68 Sibling No problems noted. Other Asthma Diabetes mellitus Hypertension Social History Social History Smoking status: Former smoker Second hand tobacco smoke exposure: No Alcohol intake: current Alcohol use details: twice a month Substance use: never Substance use type: does not use Do You Feel Safe in your Home?: Yes Lack of Transportation: No Lack of Food: Never True Current Housing: I Have Housing Concerned About Future Housing: No Difficulty Paying Gas/Electric Bills: No Difficulty Paying for Meds: No Currently Unemployed: No Education: High School Diploma/GED Difficulty w/ Childcare or Family Care: No Living arrangements: with family Occupation/Education: unemployed Gender identity (if verbalized by the patient): Female Spiritual care concerns: No Anes - Eval Final PreProcedure Day of Procedure 03/28/25 07:47 Patient weight: obese Lungs: normal air movement Airway: Mallampati scale class II Neurological: alert and oriented Last oral intake: >/= 8 hours ASA classification: II Emergent: no Anesthetic plan: proceed Anesthesia type and monitoring: general GIVS and standard monitoring Results Review: All pre-operative results and documents have been reviewed as part of the pre- operative evaluation. Informed Consent: The patient's anesthetic plan and its attendant risks and benefits were discussed with the patient/family/POA. Questions were solicited and answers provided to the satisfaction of the patient/family/POA.
--- NOTE | 2025-03-28 07:48 | P.HP_ITS ---
H&P: HPI History of Present Illness Date/Time: 03/28/25 07:48 Chief Complaint: Screening colonoscopy Narrative: This is the patient's first colonoscopy. There are no GI symptoms and there is no family history of colorectal cancer. Review of Systems Review of Systems: All systems reviewed & are unremarkable except as noted in HPI and below PMFSH Past Medical History Medical History Headache Back Pain delivery delivered Thyroid disease Surgical History Surgical History History of hysteroscopy History of 3 sections H/O tubal ligation Family History Family History Father Acute myocardial infarction, Onset Age: 44 Mother Acute myocardial infarction, Onset Age: 68 Sibling No problems noted. Other Asthma Diabetes mellitus Hypertension Social History Social History Smoking status: Former smoker Second hand tobacco smoke exposure: No Alcohol intake: current Alcohol use details: twice a month Substance use: never Substance use type: does not use Do You Feel Safe in your Home?: Yes Lack of Transportation: No Lack of Food: Never True Current Housing: I Have Housing Concerned About Future Housing: No Difficulty Paying Gas/Electric Bills: No Difficulty Paying for Meds: No Currently Unemployed: No Education: High School Diploma/GED Difficulty w/ Childcare or Family Care: No Living arrangements: with family Occupation/Education: unemployed Gender identity (if verbalized by the patient): Female Spiritual care concerns: No Meds Home Medications and Allergies Home Medications ?Medication ?Instructions ?Recorded ?Confirmed ?Type cyclobenzaprine 10 mg tablet See Rx Instructions .Marla russell 09/08/23 03/28/25 Rx .COMPLEX #30 tabs loratadine 10 mg tablet (Claritin) 10 mg PO DAILY 10/0203/28/25 History frovatriptan 2.5 mg tablet See Rx Instructions PO .COM PLEX #8 05/31/24 03/28/25 Rx tabs levothyroxine 112 mcg tablet See Rx Instructions .Marla russell 12/07/24 03/28/25 Rx .COMPLEX #90 tabs budesonide-formoterol HFA 160 See Rx Instructions .Rou te 01/03/25 03/28/25 Rx mcg-4.5 mcg/actuation aerosol .COMPLEX #10.2 ea inhaler valacyclovir 1 gram tablet 2,000 mg (2 x 1 gram) PO Q1 2H #12 01/23/25 03/13/25 Rx tabs bupropion HCl 150 mg 24 hr tablet, 150 mg PO QAM #90 t abs 02/14/25 03/28/25 Rx extended release (Wellbutrin XL) Allergies Allergy/AdvReac Type Severity Reaction Status Date / Time No Known Allergies Allergy Verified 03/28/25 07:20 Vital Signs Vital Signs - 24 hr 03/28/25 07:21 Temperature 98.4 F Pulse Rate 73 Respiratory Rate 18 Blood Pressure 127/94 H Pulse Oximetry 100 Oxygen Delivery Room Air Exam Const: General: cooperative and healthy appearing Resp: Effort & Inspection: normal respiratory effort and able to speak in complete sentences Auscultation: clear to auscultation bilaterally Cardio: Rate: regular rate Rhythm: regular rhythm GI: Inspection: normal to inspection GI Palp: No No hepatosplenomegaly present Auscultation: normal bowel sounds Rectal Exam: deferred Skin: General skin exam: normal color Psych: Appearance: grossly normal Mental Status: mental status grossly normal Assessment and Plan Assessment and plan (1) Screening for colon cancer: Code(s): Z12.11 - Encounter for screening for malignant neoplasm of colon Status: Acute Assessment and Plan: The patient is deemed a good candidate for the procedure. Consent signed. Will proceed.
[2025-03-28 08:12] LABS: BEDSIDEPREGUCG Negative (Negative)
[2025-03-28 08:34] VITALS: BP 123/83; PULSE 73; RESP 21; O2SAT 98
[2025-03-28 08:44] VITALS: BP 129/84; PULSE 66; RESP 18; O2SAT 99
[2025-03-28 08:54] VITALS: BP 131/88; PULSE 60; RESP 16; O2SAT 99
== END 2025-03-28 08:58 | disposition home or self-care (01) ==
PROVIDERS: Anesthesiology; PCP Nurse Practitioner; Referring Provider Nurse Practitioner; Visit Provider Internal Medicine Gastroenterology
PROC: 0DJD8ZZ Inspection of Lower Intestinal Tract, Via Natural or Artificial Opening Endoscopic (ICD-10-PCS; CPT 45378; principal; 2025-03-28 08:30)
DX: Z12.11 Encounter for screening for malignant neoplasm of colon (principal); K57.30 Diverticulosis of large intestine without perforation or abscess without bleeding; E66.9 Obesity, unspecified; Z68.33 Body mass index [BMI] 33.0-33.9, adult
CPT/HCPCS: 45378; J2003; J2704; J7120